=== PATIENT | female | born 1955 | race Caucasian/White ===

== ENCOUNTER → 2019-10-31 | Outpatient (CLI) | payer OTHER ==
--- NOTE | 2019-11-01 09:24 | PCVCIMAG ---
APPROVED REPORT Study performed: 10/31/2019 14:37:33 Exam: Stress Echocardiogram Indication: Hyperlipidemia, Hypertension Patient Location: Echo lab Stress Nurse: Mary Beth Ta RN Status: routine Ht: 5 ft 4 in HR: 67 bpm BP: 158/84 mmHg Rhythm: NSR Procedure The patient underwent an Exercise Stress Test using the Stone Protocol. Blood pressure, heart rate, and EKG were monitored. An Echocardiogram was performed by breeding technician in four stages in quad fashion. At peak stress, four selected images were obtained and placed side by side with resting images for comparison. Stress Test Details Stress Test: Exercise stress testing was performed using a Stone protocol. HR Resting HR: 67 bpmMax Heart Rate (APMHR): 158 bpm Max HR Achieved: 141 bpmTarget HR (85% APMHR): 134 bpm % of APMHR: 89 Recovery HR: 85 bpm HR response to stress: Normal HR response to stress BP Resting BP: 158/84 mmHg Max BP: 160/84 mmHg Recovery BP: 132/80 mmHg BP response to stress: Normal blood pressure response to stress. ECG Resting ECG: Sinus Rhythm Stress ECG: Sinus Rhythm ST Change: Normal Maximum ST Deviation: 0 mm Arrhythmia: None Recovery ECG: Sinus Rhythm Recovery ST Change: Normal Recovery ST Deviation: 0 mm Recovery Arrhythmia: None Clinical Reason for Termination: Maximal effort Exercise duration: 9 min 38 sec Highest Stage Achieved: Stage 3: 3.4 mph at 14% grade. Exercise capacity: 12.10 METs Overall Exercise Capacity for Age: Good Angina Score: None Stress ECG Conclusion Clinical: Non-ischemic ECG: Non-ischemic Willis Treadmill Score is 9.0 which is Low risk. Pre-Stress Echo The resting Echocardiogram showed normal left ventricular contractility with an estimated Ejection Fraction of about >55%. Normal wall motion in all segments on baseline images. Post-Stress Echo The stress Echocardiogram showed normal left ventricular contractility with an estimated Ejection Fraction of about 60-65%. Normal augmentation of wall motion in all segments on post stress images. Clinical No clinical or ECG evidence for ischemia. Conclusion Clinical Response: Non-ischemic Exercise Capacity: Average Stress ECG Response: Non-ischemic Stress Echo Images: Non-ischemic The left ventricle is normal in size and wall thickness in both the rest and stress images. Trace tricuspid regurgitation. Pulmonary artery pressure is 32mmHg. Normal stress echocardiogram with maximal exercise stress. Other Information Study Quality: Good <Conclusion> The left ventricle is normal in size and wall thickness in both the rest and stress images. Trace tricuspid regurgitation. Pulmonary artery pressure is 32mmHg. Normal stress echocardiogram with maximal exercise stress.
== END | disposition home or self-care (01) ==
LOC: PCVCIMAG 14:16
PROVIDERS: ATTEND Internal Medicine Cardiovascular Disease
DX: R07.9 Chest pain, unspecified (principal); I10 Essential (primary) hypertension; E78.5 Hyperlipidemia, unspecified
CPT/HCPCS: 93325; 93351